=== PATIENT | female | born 1995 | race Two or more races ===

== ENCOUNTER → 2024-07-04 | Outpatient (CLI) | payer OTHER, SELFPAY ==
[2024-07-04 18:14] LABS: Syphilis Nonreactive (Nonreactive)
[2024-07-04 18:38] LABS: Hepatitis B Surface Antigen Non Reactive (Non React); Hepatitis C Antibody Non Reactive (Non React)
[2024-07-04 18:53] LABS: HIV (1&2) Antibody Rapid Non-Reactive
[2024-07-04 19:29] LABS: Hepatitis A Antibody IgM Non Reactive (Non React)
[2024-07-10 06:42] LABS: HSV2 IgG Type Specific Ab <0.90 INDEX; Hepatitis B Core Ab,Total* NONREACTIVE
== END | disposition home or self-care (01) ==
LOC: COPL 16:35
PROVIDERS: PCP Physician Assistant; Referring Provider Physician Assistant; Visit Provider Physician Assistant
DX: Z20.2 Contact with and (suspected) exposure to infections with a predominantly sexual mode of transmission (principal)
CPT/HCPCS: 36415; 86695; 86696; 86703; 86704; 86709; 86780; 86803; 87340